=== PATIENT | female | born 1965 | race African-American/Black ===

== ENCOUNTER 2022-11-28 14:17 | Emergency (ER) | payer MEDICAID ==
[2022-11-28] MEDS ORDERED: Aspirin 81 MG Tab.Chew PO ONE (14:50)
[2022-11-28 15:39] LABS: CARBON DIOXIDE,CO2 28.8 mmol/L (21.0-32.0); POTASSIUM,K 3.6 mmol/L (3.5-5.1)
[2022-11-28 15:42] LABS: CORONAVIRUS COVID-19 NAA NEGATIVE (NEGATIVE); INFLUENZA A NAA NEGATIVE (NEGATIVE); INFLUENZA B NAA NEGATIVE (NEGATIVE); RESPIRATORY SYNCYTIAL VIR NAA NEGATIVE (NEGATIVE)
[2022-11-28] MEDS ORDERED: Heparin Sodium/0.45% NaCl 500 ML IV SCH (16:30)
[2022-11-28] MEDS ORDERED: Heparin Sodium 5,000 Units/ML Vial IVPUSH ONE (16:46)
[2022-11-29] MEDS ORDERED: Nitroglycerin 0.4 MG Tab.SL SL PRN (01:18)
== END 2022-11-29 02:00 ==
LOC: MW.ED 14:17
DX: I21.4 Non-ST elevation (NSTEMI) myocardial infarction (principal); I10 Essential (primary) hypertension; F17.200 Nicotine dependence, unspecified, uncomplicated; Z79.899 Other long term (current) drug therapy; Z20.822 Contact with and (suspected) exposure to COVID-19
CPT/HCPCS: 0241U; 36415; 71045; 80053; 83605; 84484; 85025; 85730; 93005; 96365; 96366; 99285; A9270; J1644; 93010